=== PATIENT | male | born 1970 | race Caucasian/White ===

== ENCOUNTER 2016-10-21 21:56 | Emergency (ER) | payer MEDICAID, OTHER ==
[~2016-10-21] VITALS: Wt 69.0 kg
[~2016-10-21 21:56] MED LIST: ACET500C5 PO; FIORICET PO
--- NOTE | 2016-10-21 23:52 | ERD ---
ER Documentation Chief Complaint Date/Time DATE: 10/21/16 TIME: 23:45 Chief Complaint numbness to r. thigh, r. elbow and r. ear. neg neuro def. HPI 46-year-old man complaining of paresthesias to the right side 2-3 months. He states he has ear pain as well for the same amount of time. Patient has a history of left subgaleal hematoma, no history of intracranial bleeding, no stroke. Patient denies weakness in his arms or legs, no difficulty and bleeding , no fevers or chills, no chest pain or shortness of breath. ROS All systems reviewed and are negative except as per history of present illness. Medications Home Meds Active Scripts Acetamin/Butalbital/Caffeine* (Fioricet*) 1 Tab Tab, 1 TAB PO Q4H Y for PAIN LEVEL 1-5, #20 TAB Prov:[employer] 01/24/16 Reported Medications Acetaminophen* (Tylophen*) Unknown Strength Capsule, PO Q8H Y for PAIN AND OR ELEVATED TEMP, #20 CAP 01/23/16 Allergies Allergies: Coded Allergies: No Known Allergy (Unverified , 03/17/14) PMhx/Soc Subgaleal hematoma Medical and Surgical Hx: pt denies Medical Hx, pt denies Surgical Hx Hx Miscellaneous Medical Probl: Yes (URETHRAL STRICTURES) Hx Alcohol Use: No Hx Substance Use: No Hx Tobacco Use: No Smoking Status: Never smoker FmHx Family History: No diabetes Physical Exam Vitals Vital Signs Date Time Temp Pulse Resp B/P Pulse Ox O2 Delivery O2 Flow Rate FiO2 10/21/16 22:02 98.1 68 20 170/91 100 Physical Exam GENERAL: Well-developed, well-nourished, well-hydrated, in no apparent distress , looks nontoxic in appearance HEENT: Moist mucous membranes, pink conjunctiva, no cervical spine tenderness or step-off deformities, no goiter, no jaundice or icterus, extraocular movements intact without pain. No submandibular induration, and no pharyngeal erythema NEURO: Alert and oriented 3, cranial nerves II through XII intact bilaterally, pupils equal round reactive to light, no focal deficits or facial asymmetry, sensation intact distally Strength 5/5 in upper and lower extremities bilaterally CARDIAC: Regular rate and rhythm, no murmurs rubs or gallops LUNGS: Clear bilaterally no wheezing crackles or stridor ABDOMEN: Soft nontender, no guarding, no rigidity, no rebound, no psoas sign no obturator sign. Normoactive bowel sounds SKIN: Warm and dry to touch, no abrasions, contusions, or hematomas, no lacerations, no ecchymosis, no target lesions, and without ulcers EXTREMITIES: No clubbing cyanosis or edema, calves are bilaterally symmetrical, no Homans sign, no popliteal cord sign. Distal pulses equal and bilateral PSYCH: Normal affect without agitation or irritability Procedures/MDM I provided reassurance, I reviewed the patient's past medical history and previous CT brain. I've no further intervention to offer here I recommended he follow-up with his PMD. Differential diagnoses considered, included but not limited to acute coronary syndrome, pulmonary embolism, aortic dissection, abdominal aortic aneurysm, sepsis, stroke, meningitis, encephalitis, pneumonia, appendicitis, cholecystitis , bowel obstruction, pyelonephritis, nephrolithiasis, cystitis, as well as metabolic, hematologic, and electrolyte abnormalities. As well as abscess, cellulitis, fractures, and dislocations. Patient feels much better at this time, and vital signs are normal, symptoms have improved. I did give strict instructions to return to the ED if symptoms continue or worsen, patient will otherwise follow-up with primary care physician. Patient understood instructions and agreed to plan. Departure Diagnosis: Primary Impression: Leg paresthesia Condition: Good Patient Instructions: Paravetos ESTELLA DILL MD Oct 21, 2016 23:52
[2016-10-22 00:46] VITALS: BP 148/89; PULSE 78; RESP 20; TEMP 98.1
== END 2016-10-22 00:47 | disposition home or self-care (01) ==
LOC: FTE 21:56
DX: R20.8 Other disturbances of skin sensation (principal)
CPT/HCPCS: 99282